=== PATIENT | male | born 1955 | race Caucasian/White ===

== ENCOUNTER 2017-07-25 23:57 | Emergency (ER) | payer BC ==
--- NOTE | 2017-07-26 00:36 | EDM.PDOC ---
ED HPI GENERAL MEDICAL PROBLEM - General Chief Complaint: Gastrointestinal Problem Stated Complaint: PT BLEEDING Time Seen by Provider: 07/26/17 00:24 - History of Present Illness INITIAL COMMENTS - FREE TEXT/NARRATIVE: HISTORY AND PHYSICAL: History of present illness: The patient is a 62-year-old male with no stated medical problems who has never had a colonoscopy and presents with complaints of having bright red blood per rectum after a hard bowel movement at about 7:30 PM. Patient says usually has a bowel movement every other day and it is not usually constipated but he'll have times when he does get a little backed up. He says he knew the stool was going to be hard and he came home from work after having a complete normal day and proceeded to have a very hard bowel movement which was followed by a lot of bright red blood. He denies any rectal pain and says that he has some lower abdominal discomfort since the bowel movement. He has no upper abdominal pain no food intolerances no lightheadedness dizziness chest pain or shortness of breath. He has not been bleeding since the bowel movement in his underwear. He' s had no urinary complaints and has no hematuria or flank pain. Review of systems: As per history of present illness and below otherwise all systems reviewed and negative. Past medical history: As per history of present illness and as reviewed below otherwise noncontributory. Surgical history: As per history of present illness and as reviewed below otherwise noncontributory. Social history: No reported history of drug or alcohol abuse. Family history: As per history of present illness and as reviewed below otherwise noncontributory. Physical exam: Gen.: Well-developed well-nourished man who is nontoxic and vital signs of been reviewed by me. HEENT: Atraumatic, normocephalic, negative for conjunctival pallor or scleral icterus, mucous membranes moist, throat clear, neck supple, nontender, trachea midline. Lungs: Clear to auscultation, breath sounds equal bilaterally, chest nontender. Heart: S1S2, regular, negative for clicks, rubs, or JVD. Abdomen: Soft, nondistended. On deep palpation I am unable to elicit much tenderness on the abdomen except for a very minimal amount in the left lower quadrant without rebound or guarding Negative for masses or hepatosplenomegaly. Bowel sounds are slightly hypoactive Pelvis: Stable nontender. Genitourinary: Deferred. Rectal: There is normal tone and there is scant blood in the vault with some mucus. At approximately 9 to 10:00 lithotomy position there is a hemorrhoid/ mass that is seen when the patient bears down and emerges , it has some tension but is not actively bleeding currently. There is no discrete tenderness in this area. Without the patient doing a Valsalva it is difficult to appreciate this area in question. Extremities: Atraumatic, negative for cords or calf pain. Neurovascular unremarkable. Neuro: Awake, alert, oriented. Cranial nerves II through XII unremarkable. Cerebellum unremarkable. Motor and sensory unremarkable throughout. Exam nonfocal. Diagnostics: CBC CMP INR Therapeutics: I discussed with the patient testing results and need to reduce his caffeine intake. I will write for [place] which will help to shrink this mass if it is a hemorrhoid but I have cautioned him that he does need to follow-up and see his provider and get a screening colonoscopy to further assess this situation. I 've advised him on reasons to return. I told him that he needs to increase hydration and fiber in his diet and take a stool softener. Impression: Episode of rectal bleeding, rectal mass/hemorrhoid stable Definitive disposition and diagnosis as appropriate pending reevaluation and review of above. hypogastric Pain Score (Numeric/FACES): 4 - Related Data Allergies Allergy/AdvReac Type Severity Reaction Status Date / Time No Known Allergies Allergy Verified 07/26/17 00:15 Home Meds: Home Meds Aspirin 81 mg PO DAILY 07/26/17 [History] Past Medical History - Past Health History Medical/Surgical History: Denies Medical/Surgical History HEENT History: Reports: Impaired Vision Cardiovascular History: Reports: [place], Stents Social & Family History - Family History Family Medical History: Noncontributory - Tobacco Use Smoking Status *Q: Never Smoker - Recreational Drug Use Recreational Drug Use: No ED ROS GENERAL - Review of Systems Review Of Systems: ROS reveals no pertinent complaints other than HPI. ED EXAM, GENERAL - Physical Exam Exam: See Below (See dictation) Course - Vital Signs Last Recorded V/S: Last Vital Signs Temp 36.4 C 07/25/17 23:57 Pulse 90 07/25/17 23:57 Resp 18 07/25/17 23:57 BP 160/96 H 07/25/17 23:57 Pulse Ox 94 L 07/25/17 23:57 - Orders/Labs/Meds Orders: Active Orders 24 hr Category Date Time Status Communication Order [RC] STAT Care 07/26/17 00:32 Active Labs: Laboratory Tests 07/26/17 07/26/17 07/26/17 Range/Units 00:45 00:45 00:45 WBC 7.78 (4.0-11.0) K/uL RBC 4.00 L (4.50-5.90) M/uL Hgb 12.2 L (13.0-17.0) g/dL Hct 36.9 L (38.0-50.0) % MCV 92.3 (80.0-98.0) fL MCH 30.5 (27.0-32.0) pg MCHC 33.1 (31.0-37.0) g/dL RDW Std Deviation 41.8 (28.0-62.0) fl RDW Coeff of Jd 13 (11.0-15.0) % Plt Count 286 (150-400) K/uL MPV 11.20 (7.40-12.00) fL Neut % (Auto) 65.1 (48.0-80.0) % Lymph % (Auto) 23.8 (16.0-40.0) % [place] % (Auto) 9.8 (0.0-15.0) % Eos % (Auto) 1.2 (0.0-7.0) % Baso % (Auto) 0.1 (0.0-1.5) % Neut # (Auto) 5.1 (1.4-5.7) K/uL Lymph # (Auto) 1.9 (0.6-2.4) K/uL [place] # (Auto) 0.8 (0.0-0.8) K/uL Eos # (Auto) 0.1 (0.0-0.7) K/uL Baso # (Auto) 0.0 (0.0-0.1) K/uL INR 0.98 (0.86-1.11) Sodium 141 (136-146) mmol/L Potassium 3.6 (3.5-5.1) mmol/L Chloride 108 (98-110) mmol/L Carbon Dioxide 24 (21-31) mmol/L BUN 14 (6.0-23.0) mg/dL Creatinine 1.0 (0.6-1.5) mg/dL Est Cr Clr Drug Dosing 90.19 mL/min Estimated GFR (MDRD) > 60.0 ml/min Glucose 122 H (60-110) mg/dL Calcium 8.6 L (8.8-10.8) mg/dL Total Bilirubin 0.4 (0.1-1.5) mg/dL AST 16 (5-40) IU/L ALT 15 (8-54) IU/L Alkaline Phosphatase 100 (40-150) Total Protein 7.1 (6.0-8.0) g/dL Albumin 3.9 (3.4-4.8) g/dL Globulin 3.2 (2.0-3.5) g/dL Albumin/Globulin Ratio 1.2 L (1.3-2.8) Departure - Departure Time of Disposition: 01:34 Disposition: Home, Self-Care 01 Condition: Good Clinical Impression: Rectal bleeding Hemorrhoid Qualifiers: Hemorrhoid type: unspecified Qualified Code(s): K64.9 - Unspecified hemorrhoids - Discharge Information Referrals: PCP,None [Primary Care Provider] - Forms: ED Department Discharge Additional Instructions: The following information is given to patients seen in the emergency department who are being discharged to home. This information is to outline your options for follow-up care. We provide all patients seen in our emergency department with a follow-up referral. The need for follow-up, as well as the timing and circumstances, are variable depending upon the specifics of your emergency department visit. If you don't have a primary care physician on staff, we will provide you with a referral. We always advise you to contact your personal physician following an emergency department visit to inform them of the circumstance of the visit and for follow-up with them and/or the need for any referrals to a consulting specialist. The emergency department will also refer you to a specialist when appropriate. This referral assures that you have the opportunity for followup care with a specialist. All of these measure are taken in an effort to provide you with optimal care, which includes your followup. Under all circumstances we always encourage you to contact your private physician who remains a resource for coordinating your care. When calling for followup care, please make the office aware that this follow-up is from your recent emergency room visit. If for any reason you are refused follow-up, please contact the [facility] emergency department at and ask to speak to the emergency department charge nurse. [facility] Primary care- Internal Medicine and [facility] [address] [place] [id number] [facility] Specialty Care-General Surgery Professional Building [address] [place] [id number] These reduce the caffeine that you're ingesting including tea. Please increase hydration and take stool softener or a fiber supplement every single day to prevent constipation. Increase fiber in your diet. Please fill the prescription you have been given for the [place] and apply it to the area as we discussed. Please contact your provider or one of our providers to arrange a colonoscopy as this may be more than a hemorrhoid and needs more evaluation. Return to ER as needed and as discussed. - My Orders Last 24 Hours: My Active Orders 07/26/17 00:32 Communication Order [RC] STAT - Assessment/Plan Last 24 Hours: My Active Orders 07/26/17 00:32 Communication Order [RC] STAT
[2017-07-26 01:26] LABS: CHLORIDE,CL 108 mmol/L (98-110); SODIUM,NA 141 mmol/L (136-146)
== END 2017-07-26 01:55 | disposition home or self-care (01) ==
LOC: MW.ED 23:57
DX: K62.5 Hemorrhage of anus and rectum (principal); K64.9 Unspecified hemorrhoids; Z79.82 Long term (current) use of aspirin
CPT/HCPCS: 36415; 80053; 85025; 85610; 99283; 99284